=== PATIENT | male | born 1950 | race Caucasian/White ===

== ENCOUNTER → 2021-09-09 | Outpatient (CLI) | payer OTHER ==
[2021-09-09 12:10] LABS: HEMOGLOBIN 14.2 gm/dl (14.0-17.5); RED BLOOD COUNT 5.01 M/UL (4.20-5.50); WHITE BLOOD COUNT 6.7 K/UL (4.5-11.0)
[2021-09-09 12:29] LABS: BUN/CREATININE RATIO 36 (0-10)
[2021-09-10 08:17] LABS: LDL CHOL. (DIRECT) 64 mg/dL (0-99)
[2021-09-10 23:07] LABS: ALT (SGPT) P5P 20 IU/L (0-55); APOLIPOPROTEIN A-1 144 mg/dL (101-178); AST (SGOT) P5P 20 IU/L (0-40); BILIRUBIN, TOTAL 0.4 mg/dL (0.0-1.2); CHOLESTEROL, TOTAL 135 mg/dL (100-199); FIBROSIS SCORE 0.15 (0.00-0.21); GGT 15 IU/L (0-65); GLUCOSE, SERUM 105 mg/dL (65-99); HAPTOGLOBIN 116 mg/dL (32-363); HEIGHT: 65 in (.); TRIGLYCERIDES 69 mg/dL (0-149); WEIGHT: 200 LBS (.)
== END ==
LOC: LAB 10:53
PROVIDERS: Family Medicine
DX: E78.5 Hyperlipidemia, unspecified (principal); R73.03 Prediabetes; I10 Essential (primary) hypertension
CPT/HCPCS: 36415; 80053; 80061; 82043; 82172; 82247; 82465; 82570; 82947; 82977; 83010; 83036; 83883; 84450; 84460; 84478; 85025